=== PATIENT | female | born 1950 | race Caucasian/White ===

== ENCOUNTER 2024-08-15 11:22 | Emergency (ER) | payer OTHER ==
[2024-08-15 12:21] LABS: Absolute Lymphocytes (CBC) 0.2 K/uL (0.7-4.9); Absolute Monocytes 0.4 K/uL (0.1-1.3); Absolute Neutrophil 9.7 K/uL (1.8-8.0); Basophils % 0.2 % (0-1.3); Hematocrit 40.4 % (36.0-45.0); Hemoglobin 13.4 g/dL (12.0-15.0); Lymphocytes % 1.8 % (15.3-44.8); MCH 31.2 pg (27.0-35.0); MCHC 33.3 g/dL (32.0-36.0); MCV 93.6 fL (80-100); MPV 9.9 fL (7.6-11.3); Monocytes % 3.9 % (3.3-12.3); Neutrophils % 94.1 % (41.7-73.7); Nucleated Red Blood Cells % 0.1 % (0-0); Platelets 86 thou/uL (152-406); RBC Red Blood Cell Count 4.31 M/uL (3.86-4.86)
[2024-08-15 12:33] LABS: PT Prothrombin Time 12.4 SECONDS (9.4-12.5); Protime INR 1.18
[2024-08-15 12:40] LABS: Albumin 2.2 g/dL (3.4-5.0); Albumin/Globulin Ratio 0.5 (1.1-1.8); Anion Gap 10.7 mEq/L (5.0-15.0); Bilirubin Direct 0.5 mg/dL (0-0.2); Bilirubin Indirect, Calculated 0.4 mg/dL (0.2-0.8); Bilirubin Total 0.9 mg/dL (0.2-1.0); Globulin 4.4 g/dL (2.3-3.5); Magnesium 2.2 mg/dL (1.6-2.4); Potassium 3.7 mEq/L (3.5-5.1); Protein, Total 6.6 g/dL (6.4-8.2)
[2024-08-15 12:46] LABS: Troponin High Sensitivity 179.9 pg/mL (<58.9)
--- NOTE | 2024-08-15 12:57 | EKG ---
Test Date: 2024-08-15 Test Time: 11:49:35 Office Messenger Helper: LUCIO MEASUREMENT RESULTS: Intervals: Rate: 82 DC: 132 QRSD: 88 QT: 370 QTc: 432 [place]: P: 69 DC: 132 QRS: 93 T: 61 INTERPRETIVE STATEMENTS: Sinus rhythm with premature supraventricular complexes Otherwise normal ECG No previous ECG available for comparison Electronically Signed On 08-15-24 12:48:58 BACK END ENGINEER by Sanjay Bee
--- NOTE | 2024-08-15 13:23 | RAD REPORT ---
Procedure: Chest Single View HISTORY: Hypoxia COMPARISON: none FINDINGS: Large consolidation right lung likely pneumonia Opacity overlying the left upper hemithorax represents a chest wall mass. Lungs are hyperaerated. No significant pleural effusion noted. The heart is normal size.
[2024-08-15 13:32] LABS: Band Neutrophils 26 % (0-1); Differential Total Cells Count 100; Lymphocytes 3 % (15-42); Monocytes 4 % (0-10); Platelet Estimate DECR; Segmented Neutrophils 67 % (40-80)
[2024-08-15 13:33] LABS: Blood Morphology Comment NOT SEEN (NOT SEEN)
--- NOTE | 2024-08-15 13:35 | RAD REPORT ---
EXAMINATION: CTA CHEST PE CLINICAL INDICATION: Female, 73 years old. hypoxia, left chest mass TECHNIQUE: This examination was performed according to an angiographic protocol with 3D post-processi ng. This involves 3D reconstructions, MIPs, volume rendered images and/or shaded surface rendering. One or more of the following dose reduction techniques were used: Automated exposure control, adjustm ent of the mA and/or kV according to patient size, and/or iterative reconstruction. Unless otherwise specified, incidental findings do not require dedicated imaging follow-up. [id number]. COMPARISON: No priors. FINDINGS: LOWER NECK: Visualized thyroid gland and soft tissues are normal. LUNGS AND AIRWAYS: Consolidative airspace disease throughout the right lower lobe. Scattered bilatera l opacities. Right apical lung cavitation with air-fluid. PLEURA: No pleural effusion. No pneumothorax. Hemidiaphragms are normally positioned. MEDIASTINUM AND LYMPH NODES: No mediastinal mass or fluid collection. Normal size mediastinal, hilar, and axillary lymph nodes. THORACIC AORTA: No thoracic aortic aneurysm. Atherosclerotic changes are present. PULMONARY ARTERIES: Enlarged main pulmonary arteries could indicate pulmonary artery hypertension. No pulmonary emboli identified. HEART: Normal heart size. No coronary calcifications.No significant pericardial effusion. OSSEOUS STRUCTURES AND CHEST WALL: Subacute appearing T12 compression fracture with less than 10% los s of height. Left chest wall mass measuring 7.6 cm x 3.8 cm with extrapleural spread, rib involvement of the left 2nd rib. UPPER ABDOMEN: Prominent intraluminal thrombus in the visualized abdominal aorta with moderate narrow ing. Reflux of contrast into the hepatic veins. IMPRESSION: No evidence of pulmonary emboli to the subsegmental level. Large confluent area of consolidation in the right lower lobe concerning for pneumonia, possibly due to aspiration. Other areas of nodularity and air fluid level in a right apical cavity could reflect additional sites of infection. Left chest wall mass may be center in the left 2nd rib or could be breast mass with extension. Ultras ound guided biopsy could confirm. Intraluminal thrombus at the proximal abdominal aorta with moderate narrowing could be a source of pe ripheral emboli.
--- NOTE | 2024-08-15 13:47 | RAD REPORT ---
EXAMINATION: CT HEAD WITHOUT CONTRAST CLINICAL INDICATION: Female, 73 years old.altered mental status TECHNIQUE: Axial CT images from the skull base to the vertex without intravenous contrast. Coronal an d sagittal reformatted images were created from the data set. One or more of the following dose reduction techniques were used: Automated exposure control, adjustment of the mA and/or kV according to patient size, and/or iterative reconstruction. Unless otherwise specified, incidental findings do not require dedicated imaging follow-up. [id number]. COMPARISON: No prior exam. FINDINGS: INTRACRANIAL: No acute intracranial hemorrhage. No hydrocephalus. No mass effect or midline shift. No significant white matter disease.Age advanced cerebral atrophy. VASCULATURE: No visualized abnormalities in the arteries or dural venous sinuses. SCALP/SKULL: No significant soft tissue or osseous abnormalities. SINUSES: The visualized paranasal sinuses and mastoid air cells are predominantly clear. IMPRESSION: No acute intracranial abnormality.
--- NOTE | 2024-08-15 14:03 | RAD REPORT ---
EXAMINATION: CT ABDOMEN AND PELVIS WITH CONTRAST CLINICAL INDICATION: Female, 73 years old.LOOK FOR METS TECHNIQUE: CT abdomen and pelvis was performed, after the administration of IV contrast, as per depar tment protocol. Axial, sagittal and coronal reconstructions were obtained. One or more of the following dose reduction techniques were used: Automated exposure control, adjustment of the mA and/o r kV according to patient size, and/or iterative reconstruction. Unless otherwise specified, incidental findings do not require dedicated imaging follow-up. [id number]. COMPARISON: No prior exam. FINDINGS: LOWER CHEST: See separate report UPPER GI: No significant abnormality. LIVER: Multiple low density liver lesions which have overall benign imaging features. GALLBLADDER/BILE DUCTS: No biliary ductal dilatation.? PANCREAS: No mass, ductal dilation, or andry-pancreatic fluid. SPLEEN: Unremarkable. ADRENALS: No adrenal masses. KIDNEYS AND URETERS: No hydronephrosis.Low density and/or too small to characterize renal lesions whi ch are statistically benign. ABDOMINAL AORTA AND OTHER VESSELS: Moderate atherosclerotic changes without aortic aneurysm. Prominen t intraluminal noncalcified plaque at the proximal abdominal aorta with moderate narrowing. PERITONEUM: No abnormal free fluid. No free air. LYMPH NODES: No pathologic lymphadenopathy. ABDOMINAL WALL: Unremarkable SMALL BOWEL/COLON: Small bowel has normal course and caliber. No colonic wall thickening or pericolon ic inflammatory changes.Moderate stool in the rectum. URINARY BLADDER: Distended bladder REPRODUCTIVE ORGANS: 2.6 cm possible solid lesion versus normal ovary in the left adnexa. MUSCULOSKELETAL: T12 compression fracture favored acute or subacute. Mild L1 compression deformity is likely chronic. ADDITIONAL FINDINGS: None. IMPRESSION: 1. No definite acute findings within the abdomen or pelvis. Moderate rectal stool. 2. Distended bladder. Correlate for urinary retention. 3. Suspected acute or subacute T12 compression fracture with less than 20% loss of height. 4. Prominent noncalcified mural plaque/noncalcified thrombus in the proximal abdominal aorta. This re sults in moderate narrowing of the aorta. This could be a source of embolization. 5. 2.6 cm solid appearing left adnexal structure could be the ovary or possibly an ovarian mass. This is unlikely to be the source of possible metastatic disease at the left chest wall.
--- NOTE | 2024-08-15 15:30 | ER ---
Nurse's Notes [facility] Name: Bertha Mo Age: 73 yrs Sex: Female : 1950 Arrival Date: 08/15/2024 Time: 11:22 Bed 20 Private MD: Diagnosis: chest mass;Adrenal/Ovarian mass;Other pneumonia, unspecified organism;Hypotension, unspecified;Cachexia Presentation: 08/15 11:25 Chief complaint: EMS states: toned out to patient home for altered mental status. ld1 Family reports AMS X 1 day. Coronavirus screen: At this time, the client does not indicate any symptoms associated with coronavirus-19. Ebola Screen: No symptoms or risks identified at this time. Risk Assessment: Do you want to hurt yourself or someone else? Patient reports no desire to harm self or others. Onset of symptoms was August 15, 2024 at 11:27. 11:25 Method Of Arrival: EMS: [facility] ld1 11:25 Acuity: LESLY 2 ld1 16:48 Initial Sepsis Screen: Does the patient meet any 2 criteria? No. Patient's initial cm10 sepsis screen is negative. Does the patient have a suspected source of infection? No. Patient's initial sepsis screen is negative. Triage Assessment: 11:25 General: Appears in no apparent distress. comfortable, Behavior is calm, cooperative, ld1 appropriate for age. Pain: Denies pain. EENT: No signs and/or symptoms were reported regarding the EENT system. Neuro: Level of Consciousness is awake, alert, confused, Oriented to person. Cardiovascular: Capillary refill < 3 seconds Patient's skin is warm and dry. Respiratory: Airway is patent Respiratory effort is even, unlabored. GI: Abdomen is flat, non-distended. : No signs and/or symptoms were reported regarding the genitourinary system. Derm:. Derm: No signs and/or symptoms reported regarding the dermatologic system. Musculoskeletal: No signs and/or symptoms reported regarding the musculoskeletal system. Historical: - Allergies: 11:24 No Known Allergies; ld1 - Home Meds: 11:24 None [Active]; ld1 - PMHx: 11:24 None; ld1 - PSHx: 11:24 None; ld1 - Immunization history:: Adult Immunizations up to date. - Infectious Disease History:: Denies. - Social history:: Smoking status: Patient reports the use of cigarette tobacco products, smokes one-half pack cigarettes per day. - Code Status:: DNAR. Screenin:30 [facility] ED Fall Risk Assessment (Adult) History of falling in the last 3 months, cm10 including since admission No falls in past 3 months (0 pts) Confusion or Disorientation Yes (5 pts) Intoxicated or Sedated No (0 pts) Impaired Gait Yes (1 pt) Mobility Assist Device Used Yes (1 pt) Altered Elimination Yes (1 pt) Score/Fall Risk Level 3 or more points = High Risk Oriented to surroundings, Maintained a safe environment, Hourly rounding (assess needs \T\ fall precautionary measures) done. Abuse screen: Denies threats or abuse. Denies injuries from another. Nutritional screening: No deficits noted. Tuberculosis screening: No symptoms or risk factors identified. Assessment: 12:15 General: portfolio manager at bedside speaking with patient and family about being placed on cm10 hospice.. 14:29 Derm: Decubitus located on sacrum is unstageable. bed has eschar present is draining cm10 none noted. 14:34 General: Appears ill, cachectic, Behavior is calm, cooperative. Neuro: No deficits cm10 noted. Level of Consciousness is awake, alert, Oriented to person, place, time, situation. Respiratory: No deficits noted. Airway is patent Respiratory effort is even, unlabored, Respiratory pattern is regular, symmetrical. 14:35 General: Linens changed and pt placed in hospital gown. DNR paperwork signed. Per case cm10 manager of customer billing, will set up transport back home on hospice once DME is delivered.. 15:26 General: Dr. Estevez aware of patient's BP at this time. Pt's family states that they do cm10 not want to start patient on pressors for BP. Pt's family also reports that they do not want to give pt antibiotics for her pneumonia. Pt's family remains at bedside.. 16:46 General: Discharge paperwork discussed with patient's family. Pt's family verbalized cm10 understanding of care upon discharge home. Pt leaving with [facility]. Vital Signs: 11:25 BP 104 / 64; ld1 11:25 Pulse 104; Resp 18; Temp 98.3(O); Pulse Ox 97% on 4 lpm NC; Height 5 ft. 2 in. ; ld1 11:34 Pulse 88; Resp 19; Pulse Ox 95% on 6 lpm NC; ld1 12:00 BP 85 / 66; Pulse 95; Resp 19; Pulse Ox 97% on 6 lpm NC; cm10 12:20 BP 78 / 66; Pulse 79; Resp 18; Pulse Ox 100% on 6 lpm NC; cm10 14:00 BP 85 / 62; Pulse 91; Resp 18; Pulse Ox 94% on 6 lpm NC; cm10 15:00 BP 77 / 49; Pulse 99; Resp 19; Pulse Ox 92% on 6 lpm NC; cm10 15:30 BP 60 / 45; Pulse 78; Resp 19; Pulse Ox 97% on 6 lpm NC; cm10 16:30 BP 75 / 56; Pulse 75; Resp 19; Pulse Ox 94% on 6 lpm NC; cm10 ED Course: 11:24 Patient arrived in ED. ld1 11:24 Andrew Estevez DO is Attending Physician. ms3 11:25 Arm band placed on right wrist. ld1 11:27 Triage completed. ld1 11:30 Maintain EMS IV. Dressing intact. Good blood return noted. Site clean \T\ dry. Gauge \T\ ld 1 site: 20G LFA. 11:57 Melba Estevez, RN is Primary Nurse. ld1 12:01 Melba Estevez, JOSE D is Primary Nurse. ld1 12:01 Felice Kong, JOSE D is Primary Nurse. bp 12:15 Primary Nurse role handed off by Felice Kong, JOSE D cm10 12:15 Kanika Salgado, RN is Primary Nurse. cm10 12:15 Initial lab(s) drawn, by ED staff, sent to lab. Inserted saline lock: 20 gauge in right cm10 antecubital area, using aseptic technique. Blood collected. Flushed with 10 mL NS. 12:19 XRAY Chest (1 view) In Process Unspecified. EDMS 12:30 Patient has correct armband on for positive identification. Placed in gown. Bed in low cm10 position. Call light in reach. Side rails up X2. 12:38 Warm blanket given. cm10 12:52 CT Chest For PE Angio In Process Unspecified. EDMS 13:22 CT Head Brain wo Cont In Process Unspecified. EDMS 13:24 Abdomen In Process Unspecified. EDMS 16:47 No provider procedures requiring assistance completed. IV discontinued, intact, cm10 bleeding controlled, No redness/swelling at site. Pressure dressing applied. 16:48 Provided Education on: Discharge instructions. cm10 Administered Medications: 12:19 Drug: NS 0.9% IV 1000 ml IV at 1000 ml once; to be given as a bolus over 60 minutes cm10 Route: IV; Rate: 1000 ml; Site: right antecubital; 16:49 Follow up: Response: No adverse reaction; IV Status: Completed infusion; IV Intake: cm10 850ml Medication: 14:34 VIS not applicable for this client. cm10 Intake: 16:49 IV: 850ml; Total: 850ml. cm10 Outcome: 15:30 Discharge ordered by MD. ms3 16:47 Discharged to home via ambulance, cm10 16:47 Condition: stable 16:47 Discharge instructions given to family, Instructed on discharge instructions, follow up and referral plans. Demonstrated understanding of instructions, follow-up care, 16:48 Patient left the ED. cm10 Signatures: Dispatcher [employer] EDMS Felice Kong, RN RN bp Andrew Estevez, DO ms3 Melba Estevez RN RN ld1 Kanika Salgado RN RN cm10 Corrections: (The following items were deleted from the chart) 11:28 11:25 Chief complaint: EMS states: toned out to patient home for altered mental status ld1 ld1 14:34 14:29 Derm: Decubitus located on sacrum is unstageable. bed has eschar present is cm10 draining none noted cm10 14:34 14:34 Neuro: No deficits noted. Level of Consciousness is awake, alert, Oriented to cm10 person, situation, cm10 14:41 14:34 Neuro: No deficits noted. Level of Consciousness is awake, alert, Oriented to cm10 person, situation, cm10
--- NOTE | 2024-08-15 15:30 | EDPHYS ---
Physician Documentation [facility] Name: Bertha Mo Age: 73 yrs Sex: Female : 1950 Arrival Date: 08/15/2024 Time: 11:22 Bed 20 Private MD: ED Physician Andrew Estevez HPI: 08/15 12:01 This 73 yrs old Female presents to ER via EMS with complaints of Altered Mental Status. ms3 12:01 73-year-old female with no past medical history presents to the emergency department ms3 via [facility] for altered mental status. Patient's family states patient has been altered for 3 to 4 days and has not been eating or drinking for a long time. EMS notes patient has not seen a doctor in years. EMS his blood pressure was 72/70, room air oxygen saturation 85%, blood glucose 80, heart rate 95-110, temperature 98.3.. Historical: - Allergies: 11:24 No Known Allergies; ld1 - Home Meds: 11:24 None [Active]; ld1 - PMHx: 11:24 None; ld1 - PSHx: 11:24 None; ld1 - Immunization history:: Adult Immunizations up to date. - Infectious Disease History:: Denies. - Social history:: Smoking status: Patient reports the use of cigarette tobacco products, smokes one-half pack cigarettes per day. - Code Status:: DNAR. ROS: 12:01 Unable to obtain ROS due to altered mental status, ms3 Exam: 12:03 Head/Face: Normocephalic, atraumatic. Cardiovascular: Regular rate and rhythm with a ms3 normal S1 and S2. No gallops, murmurs, or rubs. Normal PMI, no JVD. No pulse deficits. Respiratory: Lungs have equal breath sounds bilaterally, clear to auscultation and percussion. No rales, rhonchi or wheezes noted. No increased work of breathing, no retractions or nasal flaring. Abdomen/GI: Soft, non-tender, with normal bowel sounds. No distension or tympany. No guarding or rebound. No evidence of tenderness throughout. Skin: Warm, dry with normal turgor. Normal color with no rashes, no lesions, and no evidence of cellulitis. 12:03 Constitutional: The patient appears obviously ill, unkempt, Cachectic 12:03 Chest/axilla: Inspection: Mass left anterior chest, 14:10 ECG was reviewed by the Attending Physician. ms3 Vital Signs: 11:25 BP 104 / 64; ld1 11:25 Pulse 104; Resp 18; Temp 98.3(O); Pulse Ox 97% on 4 lpm NC; Height 5 ft. 2 in. ; ld1 11:34 Pulse 88; Resp 19; Pulse Ox 95% on 6 lpm NC; ld1 12:00 BP 85 / 66; Pulse 95; Resp 19; Pulse Ox 97% on 6 lpm NC; cm10 12:20 BP 78 / 66; Pulse 79; Resp 18; Pulse Ox 100% on 6 lpm NC; cm10 14:00 BP 85 / 62; Pulse 91; Resp 18; Pulse Ox 94% on 6 lpm NC; cm10 15:00 BP 77 / 49; Pulse 99; Resp 19; Pulse Ox 92% on 6 lpm NC; cm10 15:30 BP 60 / 45; Pulse 78; Resp 19; Pulse Ox 97% on 6 lpm NC; cm10 16:30 BP 75 / 56; Pulse 75; Resp 19; Pulse Ox 94% on 6 lpm NC; cm10 MDM: 11:24 Medical Screening Exam initiated ms3 11:58 ED course: Discussed end of life wishes with patient's son. Patient does not want ms3 intubation, CPR, or vasopressors. Patient is currently hypotensive and will give IVF. Discussed vasopressors through PIV and patient's son states that the patient does not want that.. 12:03 Differential Diagnosis: CVA, electrolyte abnormality, hypoglycemia, intracranial bleed, ms3 pneumonia, TIA, UTI, volume depletion. 12:04 ED course: Patient's son would like to speak to social work regarding hospice ms3 placement.. 14:12 ED course: Discussed right sided pneumonia with patient and her son and daughter. ms3 Discussed necessity of antibiotics with them and patient and her children decline abx. Patient would like to go home on hospice.. 15:45 Data reviewed: vital signs, nurses notes, lab test result(s), EKG, radiologic studies, ms3 and as a result, I will discharge patient. Consideration of Admission/Observation Patient will be discharged to hospice. I considered the following discharge prescriptions or medication management in the emergency department Medications were administered in the Emergency Department. See MAR. Independent interpretation of the following test(s) in the Emergency Department EKG: See my EKG interpretation above. Historians other than the Patient: EMS: [facility]. Daughter/Son: Patient's son and daughter. Counseling: I had a detailed discussion with the patient and/or guardian regarding the historical points, exam findings, and any diagnostic results supporting the discharge/admit diagnosis, lab results, radiology results. ED course: . 17:59 Management of patient was discussed with the following: Case management for hospice ms3 placement. 18:00 ED course: Patient discharged into hospice care at home. [facility] transported ms3 patient home. Patient alert, ill-appearing, hypotensive at time of discharge. Patient and her family agree with plan for discharge to home hospice. All questions were answered.. 08/15 11:25 Order name: Basic Metabolic Panel; Complete Time: 13:10 ms3 08/15 11:25 Order name: CBC with Diff; Complete Time: 13:52 ms3 08/15 11:25 Order name: LFT's; Complete Time: 13:10 ms3 08/15 11:25 Order name: Magnesium; Complete Time: 13:10 ms3 08/15 11:25 Order name: NT PRO-BNP; Complete Time: 13:10 ms3 08/15 11:25 Order name: PT-INR; Complete Time: 13:10 ms3 08/15 11:25 Order name: Troponin HS; Complete Time: 13:10 ms3 08/15 13:33 Order name: Manual Differential; Complete Time: 13:52 EDMS 08/15 11:25 Order name: XRAY Chest (1 view); Complete Time: 13:52 ms3 08/15 11:25 Order name: CT Chest For PE Angio; Complete Time: 13:52 ms3 08/15 11:29 Order name: CT Head Brain wo Cont; Complete Time: 13:52 ms3 08/15 13:18 Order name: Abdomen ; Complete Time: 14:03 EDMS 08/15 12:07 Order name: Social Service Consult; Complete Time: 12:54 EDMS 08/15 11:25 Order name: Cardiac monitoring; Complete Time: 11:38 ms3 08/15 11:25 Order name: EKG - Nurse/Tech; Complete Time: 12:01 ms3 08/15 11:25 Order name: IV Saline Lock; Complete Time: ms3 08/15 11:25 Order name: Labs collected and sent; Complete Time: 12: ms3 08/15 11: Order name: O2 Per Protocol; Complete Time: ms3 08/15 11:25 Order name: O2 Sat Monitoring; Complete Time: ms3 EC:10 Rate is 82 beats/min. Rhythm is regular. QRS [place] is Normal. NC interval is normal. QRS ms3 interval is normal. Clinical impression: NSR w/ Non-specific ST/T Changes. Interpreted by me. Reviewed by me. Administered Medications: 12: Drug: NS 0.9% IV 1000 ml IV at 1000 ml once; to be given as a bolus over 60 minutes cm10 Route: IV; Rate: 1000 ml; Site: right antecubital; 16:49 Follow up: Response: No adverse reaction; IV Status: Completed infusion; IV Intake: cm10 850ml Disposition: 18:00 Chart complete. ms3 Disposition Summary: 08/15/24 15:30 Discharge Ordered Notes: Location: Home ms3 Condition: Stable ms3 Diagnosis - chest mass ms3 - Adrenal/Ovarian mass ms3 - Other pneumonia, unspecified organism ms3 - Hypotension, unspecified ms3 - Cachexia ms3 Followup: ms3 - With: Private Physician - When: Today - Reason: Discharge Instructions: - Discharge Summary Sheet ms3 - Hypotension ms3 - Breast Cancer, Female ms3 - Aspiration Pneumonia, Adult ms3 Forms: - Medication Reconciliation Form ms3 - Antibiotic Education ms3 - Prescription Opioid Use ms3 - Patient Portal Instructions ms3 - Leadership Thank You Letter ms3 Signatures: Dispatcher [employer] EDMS Andrew Estevez, DO DO ms3 Melba Estevez, RN RN ld1 Kanika Salgado RN RN cm10 Corrections: (The following items were deleted from the chart) 11:25 11:25 BASIC METABOLIC PANEL+C.LAB.BRZ ordered. EDMS EDMS 11:25 11:25 CBC+H.LAB.BRZ ordered. EDMS EDMS 11:25 11:25 HEPATIC FUNCTION+C.LAB.BRZ ordered. EDMS EDMS 11:25 11:25 MAGNESIUM+C.LAB.BRZ ordered. EDMS EDMS 11:25 11:25 PROBNP+C.LAB.BRZ ordered. EDMS EDMS 11 11:25 PROTIME (+INR)+COAG.LAB.BRZ ordered. EDMS EDMS 11:25 Troponin High Sensitivity+C.LAB.BRZ ordered. EDMS EDMS 11 11:25 Chest Single View+RAD.RAD.BRZ ordered. EDMS EDMS 11 11:26 Chest For PE Angio+CT.RAD.BRZ ordered. EDMS EDMS 12: 11:58 ED course: Discussed end of life wishes. ms3 ms3
[2024-08-15 20:18] VITALS: TEMP 98.3
[2024-08-15 20:27] VITALS: BP 75/56; O2SAT 94
== END 2024-08-15 16:48 | disposition home or self-care (01) ==
LOC: ER 11:22
DX: J18.8 Other pneumonia, unspecified organism (principal); I95.9 Hypotension, unspecified; R64 Cachexia; R91.8 Other nonspecific abnormal finding of lung field; E27.8 Other specified disorders of adrenal gland; N83.9 Noninflammatory disorder of ovary, fallopian tube and broad ligament, unspecified; F17.210 Nicotine dependence, cigarettes, uncomplicated
CPT/HCPCS: 93005; 85025; 80048; 36415; 83735; 85610; 80076; 84484; 83880; 70450; 71275; 74177; 71045; Q9967